=== PATIENT | male | born 1965 | race Caucasian/White ===

== ENCOUNTER 2022-06-07 17:47 | Inpatient (IN) ==
[2022-06-07 18:36] LABS: Hematocrit 47.8 % (37.5-50.1); Hemoglobin 15.4 g/dL (12.9-16.9); Mean Corpuscular HGB Conc 32.2 g/dL (31.6-35.5); Mean Corpuscular Hemoglobin 28.7 pg (28.0-33.3); Mean Platelet Volume 10.8 fL (9.4-12.4); Platelet Count 244 K/mcL (140-400); Red Blood Count 5.37 M/mcL (4.19-5.50); Red Cell Distribution Width 13.6 % (11.5-14.5); White Blood Count 7.7 K/mcL (4.3-11.1)
[2022-06-07 18:47] LABS: INR 1.1; Prothrombin Time 12.5 Seconds (9.4-12.1)
[2022-06-07 18:56] LABS: BUN/Creatinine Ratio 6 (6-26); Blood Urea Nitrogen 5 mg/dL (6-20); Calcium 9.7 mg/dL (8.6-10.3); Carbon Dioxide 29 mEq/L (23-29); Chloride 104 mEq/L (98-107); Glucose 120 mg/dL (70-105); Osmolality,Calculated 288 (280-300); Potassium 3.6 mEq/L (3.5-5.1); Sodium 140 mEq/L (136-145); Troponin I 0.03 ng/mL (< 0.04)
[2022-06-07] MEDS ORDERED: Aspirin 81 MG TAB.CHEW PO STA (19:55)
[2022-06-07] MEDS ORDERED: Acetaminophen 325 MG TABLET PO PRN (20:26)
[2022-06-07] MEDS ORDERED: Ondansetron 4 MG/2 ML VIAL IVP PRN (20:26)
[2022-06-07] MEDS ORDERED: Naloxone 0.4 MG/ML INJ IVP PRN (20:26)
[2022-06-07 22:46] LABS: Bilirubin,Urine Negative (Negative); Blood,Urine Negative (Negative); Clarity,Urine Clear (Clear); Color,Urine Light-Yellow (Yellow); Glucose,Urine (UA) Normal (Normal); Ketones,Urine Negative (Negative); Leukocyte Esterase,Urine Negative (Negative); Nitrite,Urine Negative (Negative); Protein,Urine Negative (Neg-Trace); Specific Gravity,Urine 1.012 (1.010-1.025)
[2022-06-07] MEDS: *HR* Labetalol 20 MG/4 ML SYRINGE IVP PRN (22:53)
[2022-06-07 22:55] LABS: Amphetamine Screen,Urine Negative ng/mL (Cutoff=1000); Barbiturate Screen,Urine Negative ng/mL (Cutoff=200); Benzodiazepines Screen,Urine Negative ng/mL (Cutoff=200); Cannabinoid Screen,Urine Positive ng/mL (Cutoff = 50); Cocaine Screen,Urine Negative ng/mL (Cutoff= 300); Opiate Screen,Urine Negative ng/mL (Cutoff=300); Phencyclidine Screen,Urine Negative ng/mL (Cutoff=25)
[2022-06-08 03:08] LABS: Basophils % 0.5 %; Eosinophils # 0.1 K/mcL (0.0-0.6); Eosinophils % 1.4 %; Hematocrit 43.6 % (37.5-50.1); Hemoglobin 14.1 g/dL (12.9-16.9); Immature Granulocytes % 0.1 % (0-4); Lymphocytes # 2.5 K/mcL (0.6-4.6); Lymphocytes % 32.4 %; Mean Corpuscular HGB Conc 32.3 g/dL (31.6-35.5); Mean Corpuscular Hemoglobin 28.8 pg (28.0-33.3); Mean Corpuscular Volume 89.2 fL (83.0-100.0); Mean Platelet Volume 11.3 fL (9.4-12.4); Monocytes # 0.7 K/mcL (0.0-1.3); Monocytes % 9.3 %; Neutrophils # 4.3 K/mcL (1.6-8.9); Platelet Count 221 K/mcL (140-400); Red Blood Count 4.89 M/mcL (4.19-5.50); Red Cell Distribution Width 13.7 % (11.5-14.5); Segmented Neutrophils % 56.3 %; White Blood Count 7.6 K/mcL (4.3-11.1)
[2022-06-08 03:16] LABS: Estimated Average Glucose 117 mg/dl; Hemoglobin A1C 5.7 %
[2022-06-08 03:19] LABS: INR 1.1; Prothrombin Time 12.1 Seconds (9.4-12.1)
[2022-06-08 03:22] LABS: Activated Partial Thrombo Time 34.5 Seconds (26.0-36.0)
[2022-06-08] MEDS: Nicotine 21 MG PATCH.TD24 TD SCH (08:30)
[2022-06-08] MEDS: Aspirin 81 MG TAB.CHEW PO SCH (08:30)
[2022-06-08] MEDS: Saline Nasal Spray 44 ML BOTTLE NS SCH ×2 (13:38→20:38)
[2022-06-08 14:03] LABS: Thyroid Stimulating Hormone 1.169 mcIU/mL (0.340-5.600); Troponin I 0.05 ng/mL (< 0.04)
[2022-06-08 14:16] LABS: Alanine Aminotransferase 6 Units/L (7-52); Albumin 4.2 g/dL (3.5-5.7); Albumin/Globulin Ratio 1.7 (1.1-2.2); Alkaline Phosphatase 120 Units/L (34-104); Aspartate Amino Transferase 12 Units/L (13-39); BUN/Creatinine Ratio 8 (6-26); Bilirubin,Direct 0.1 mg/dL (0.0-0.2); Bilirubin,Indirect 0.4 mg/dL (0.0-1.0); Bilirubin,Total 0.5 mg/dL (0.3-1.0); Blood Urea Nitrogen 7 mg/dL (6-20); Calcium 9.5 mg/dL (8.6-10.3); Carbon Dioxide 25 mEq/L (23-29); Chloride 106 mEq/L (98-107); Chol/HDL Ratio 3.5 (0-4.9); Cholesterol 156 mg/dL (< 200); Globulin 2.5 g/dL (2.4-3.5); Glucose 95 mg/dL (70-105); HDL Cholesterol 44 mg/dL (40-59); LDL Cholesterol,Calculated 98 mg/dL (< 100); Osmolality,Calculated 290 (280-300); Potassium 3.8 mEq/L (3.5-5.1); Sodium 141 mEq/L (136-145); Total Protein 6.7 g/dL (6.4-8.9); Triglycerides 68 mg/dL (< 150)
[2022-06-08] MEDS: *HR* Labetalol 20 MG/4 ML SYRINGE IVP PRN ×2 (15:08→23:42)
[2022-06-08] MEDS: *HR* Heparin 5,000 UNIT/ML VIAL SQ SCH (17:55)
[2022-06-08] MEDS: Fluticasone Propionate Nasal 50 MCG/SPRAY BOTTLE NS SCH (20:38)
[2022-06-08] MEDS ORDERED: Saline Nasal Spray 44 ML BOTTLE NS SCH (21:00)
[2022-06-09] MEDS: *HR* Heparin 5,000 UNIT/ML VIAL SQ SCH ×2 (05:57→18:42)
[2022-06-09] MEDS: *HR* Labetalol 20 MG/4 ML SYRINGE IVP PRN ×2 (06:13→11:59)
[2022-06-09] MEDS: Nicotine 21 MG PATCH.TD24 TD SCH (07:53)
[2022-06-09] MEDS: Fluticasone Propionate Nasal 50 MCG/SPRAY BOTTLE NS SCH ×2 (07:54→21:36)
[2022-06-09] MEDS: Saline Nasal Spray 44 ML BOTTLE NS SCH ×2 (07:54→21:36)
[2022-06-09] MEDS: Aspirin 81 MG TAB.CHEW PO SCH (07:54)
[2022-06-09] MEDS ORDERED: lisinopriL 10 MG TABLET PO SCH (09:00)
[2022-06-09] MEDS: amLODIPine 5 MG TABLET PO SCH (12:08)
[2022-06-09] MEDS ORDERED: lisinopriL 20 MG TABLET PO ONE (13:43)
[2022-06-09] MEDS: hydroCHLOROthiazide 25 MG TABLET PO SCH (14:30)
[2022-06-10] MEDS: *HR* Heparin 5,000 UNIT/ML VIAL SQ SCH (05:38)
[2022-06-10] MEDS: Fluticasone Propionate Nasal 50 MCG/SPRAY BOTTLE NS SCH (07:57)
[2022-06-10] MEDS: Nicotine 21 MG PATCH.TD24 TD SCH (07:57)
[2022-06-10] MEDS: amLODIPine 5 MG TABLET PO SCH (07:57)
[2022-06-10] MEDS: Saline Nasal Spray 44 ML BOTTLE NS SCH (07:57)
[2022-06-10] MEDS: hydroCHLOROthiazide 25 MG TABLET PO SCH (07:58)
[2022-06-10] MEDS: Aspirin 81 MG TAB.CHEW PO SCH (07:58)
[2022-06-10] MEDS ORDERED: lisinopriL 20 MG TABLET PO SCH (09:00)
[2022-06-10 10:45] VITALS: BP 129/93
[2022-06-10 11:03] VITALS: PULSE 116; TEMP 98.3; O2SAT 97
== END 2022-06-10 12:55 | disposition home or self-care (01) | DRG 64 ==
LOC: 3BNU 17:47 → EMEROOARM 17:47 → SUATTDRO 20:41 → 3BNU 21:00
PROVIDERS: ADMIT Student in an Organized Health Care Education/Training Program; ATTEND Internal Medicine

== ENCOUNTER 2022-06-12 18:05 | Observation (INO) ==
[2022-06-12] MEDS ORDERED: Iopamidol - 370 500 ML MLS IVP ONE (18:15)
[2022-06-12] MEDS ORDERED: 0.9 % Sodium Chloride 1,000 ML IVC ONE (18:15)
[2022-06-12 18:28] LABS: Hematocrit 49.7 % (37.5-50.1); Mean Corpuscular HGB Conc 33.2 g/dL (31.6-35.5); Mean Corpuscular Hemoglobin 29.2 pg (28.0-33.3); Mean Corpuscular Volume 87.8 fL (83.0-100.0); Platelet Count 243 K/mcL (140-400); Red Blood Count 5.66 M/mcL (4.19-5.50); Red Cell Distribution Width 14.1 % (11.5-14.5)
[2022-06-12 18:42] LABS: Hemoglobin 16.5 g/dL (12.9-16.9); White Blood Count 14.5 K/mcL (4.3-11.1)
[2022-06-12 18:48] LABS: Calcium 9.8 mg/dL (8.6-10.3); Potassium 3.9 mEq/L (3.5-5.1)
[2022-06-12 18:51] LABS: INR 1.1; Prothrombin Time 12.6 Seconds (9.4-12.1)
[2022-06-12 18:53] LABS: Troponin I 0.07 ng/mL (< 0.04)
[2022-06-12 18:54] LABS: Activated Partial Thrombo Time 33.7 Seconds (26.0-36.0)
[2022-06-12] MEDS ORDERED: Aspirin Enteric Coated 325 MG Tablet PO SCH (21:15)
[2022-06-12] MEDS ORDERED: Naloxone 0.4 MG/ML INJ IVP PRN (23:22)
[2022-06-12] MEDS ORDERED: Acetaminophen 325 MG TABLET PO PRN (23:22)
[2022-06-12] MEDS ORDERED: Ondansetron 4 MG/2 ML VIAL IVP PRN (23:22)
[2022-06-12] MEDS ORDERED: Melatonin 3 MG TABLET PO PRN (23:22)
[2022-06-13] MEDS ORDERED: Nicotine 2 MG GUM BC PRN (00:08)
[2022-06-13 00:43] LABS: Basophils % 0.3 %; Eosinophils # 0.2 K/mcL (0.0-0.6); Eosinophils % 2.4 %; Hematocrit 47.2 % (37.5-50.1); Hemoglobin 15.2 g/dL (12.9-16.9); Immature Granulocytes % 0.2 % (0-4); Lymphocytes # 3.2 K/mcL (0.6-4.6); Mean Corpuscular HGB Conc 32.2 g/dL (31.6-35.5); Mean Corpuscular Hemoglobin 28.4 pg (28.0-33.3); Mean Corpuscular Volume 88.2 fL (83.0-100.0); Mean Platelet Volume 11.1 fL (9.4-12.4); Monocytes # 0.9 K/mcL (0.0-1.3); Monocytes % 9.1 %; Neutrophils # 5.6 K/mcL (1.6-8.9); Platelet Count 181 K/mcL (140-400); Red Blood Count 5.35 M/mcL (4.19-5.50); White Blood Count 9.9 K/mcL (4.3-11.1)
[2022-06-13 00:59] LABS: Prothrombin Time 11.4 Seconds (9.4-12.1)
[2022-06-13 01:02] LABS: Activated Partial Thrombo Time 30.5 Seconds (26.0-36.0)
[2022-06-13] MEDS ORDERED: Ipratropium/Albuterol Neb 3 ML IH PRN (03:11)
[2022-06-13] MEDS: Saline Nasal Spray 44 ML BOTTLE NS SCH ×2 (04:18→10:19)
[2022-06-13 04:55] LABS: Creatinine,Urine 129 mg/dL; Microalbumin,Urine < 7 mg/L; Protein/Creatinine Ratio,Urine 0.09 mg/mg (0.00-0.20)
[2022-06-13 05:40] LABS: Troponin I 0.03 ng/mL (< 0.04)
[2022-06-13 08:22] LABS: Alanine Aminotransferase 13 Units/L (7-52); Albumin 3.8 g/dL (3.5-5.7); Albumin/Globulin Ratio 1.7 (1.1-2.2); Alkaline Phosphatase 118 Units/L (34-104); Aspartate Amino Transferase 18 Units/L (13-39); BUN/Creatinine Ratio 23 (6-26); Bilirubin,Total 0.4 mg/dL (0.3-1.0); Blood Urea Nitrogen 19 mg/dL (6-20); Calcium 8.9 mg/dL (8.6-10.3); Carbon Dioxide 25 mEq/L (23-29); Chloride 105 mEq/L (98-107); Globulin 2.3 g/dL (2.4-3.5); Glucose 97 mg/dL (70-105); Magnesium 1.9 mg/dL (1.6-2.6); Osmolality,Calculated 288 (280-300); Potassium 3.9 mEq/L (3.5-5.1); Sodium 138 mEq/L (136-145); Total Protein 6.1 g/dL (6.4-8.9)
[2022-06-13 08:47] LABS: Estimated Average Glucose 117 mg/dl; Hemoglobin A1C 5.7 %
[2022-06-13 08:47] LABS: Amphetamine Screen,Urine Negative ng/mL (Cutoff=1000); Barbiturate Screen,Urine Negative ng/mL (Cutoff=200); Benzodiazepines Screen,Urine Negative ng/mL (Cutoff=200); Cannabinoid Screen,Urine Positive ng/mL (Cutoff = 50); Cocaine Screen,Urine Negative ng/mL (Cutoff= 300); Opiate Screen,Urine Negative ng/mL (Cutoff=300); Phencyclidine Screen,Urine Negative ng/mL (Cutoff=25)
[2022-06-13 08:58] LABS: Bilirubin,Urine Negative (Negative); Blood,Urine Negative (Negative); Clarity,Urine Clear (Clear); Color,Urine Light-Yellow (Yellow); Glucose,Urine (UA) Normal (Normal); Ketones,Urine Negative (Negative); Leukocyte Esterase,Urine Negative (Negative); Nitrite,Urine Negative (Negative); Protein,Urine Trace mg/dL (Neg-Trace); Specific Gravity,Urine > 1.030 (1.010-1.025); Urobilinogen,Urine Normal (Normal)
[2022-06-13] MEDS ORDERED: Nicotine 21 MG PATCH.TD24 TD SCH (09:00)
[2022-06-13] MEDS ORDERED: Fluticasone Propionate Nasal 50 MCG/SPRAY BOTTLE NS SCH (09:00)
[2022-06-13] MEDS ORDERED: Aspirin Enteric Coated 81 MG Tablet PO SCH (09:00)
[2022-06-13 11:50] VITALS: BP 123/83; PULSE 99; TEMP 98.3; O2SAT 97
== END 2022-06-13 16:08 | disposition home or self-care (01) ==
LOC: SUATTDRO → 3BNU 18:05 → EMEROOARM 18:05 → SUATTDRO 23:17 → 3BNU 23:31
PROVIDERS: ADMIT Internal Medicine; ATTEND Registered Nurse